=== PATIENT | female | born 1990 | race African-American/Black ===

== ENCOUNTER 2022-01-18 08:07 | Emergency (ER) | payer OTHER ==
[~2022-01-18] VITALS: Ht 154.9 cm; Wt 55.0 kg
[~2022-01-18 08:07] MED LIST: ACET-2708 MT
[2022-01-18] MEDS ORDERED: LIDOCAINE HCL/EPINEPHRINE 1%-EPI 1:100,000 20 ML VIAL INFIL ONE (13:45)
[2022-01-18 16:05] VITALS: BP 149/82
[2022-02-28] MEDS ORDERED: CHOL400D7 PO (16:47)
[2022-03-01] MEDS ORDERED: FOLI-43 PO (12:56)
[2022-03-01] MEDS ORDERED: THIA100T72 PO (12:56)
[2022-03-01] MEDS ORDERED: L25 PO (12:56)
[2022-03-01] MEDS ORDERED: MULT-230 MT (12:56)
[2022-03-01] MEDS ORDERED: AMLO2.5T45 MT (12:57)
== END 2022-01-18 16:14 | disposition home or self-care (01) ==
LOC: ER 08:13
DX: S01.81XA Laceration without foreign body of other part of head, initial encounter (principal); W18.39XA Other fall on same level, initial encounter; Y93.89 Activity, other specified; Y92.89 Other specified places as the place of occurrence of the external cause; Y99.8 Other external cause status
CPT/HCPCS: 36415; 84702; 99285; J3490

== ENCOUNTER 2023-05-18 07:02 | Emergency (ER) | payer MEDICAID, OTHER ==
[~2023-05-18] VITALS: Ht 157.5 cm; Wt 41.1 kg
[~2023-05-18 07:02] MED LIST changes: +AMLO2.5T45 MT; +CHOL400D7 PO; +FOLI-43 PO; +L25 PO; +MULT-230 MT; +THIA100T72 PO
[2023-05-18 07:15] VITALS: O2SAT 100
[2023-05-18 08:45] VITALS: BP 146/98; PULSE 118; RESP 18; TEMP 98.1
[2023-05-18] MEDS ORDERED: IBUPROFEN 400MG TABLET PO ONE (08:45)
[2023-05-18] MEDS ORDERED: ACETAMINOPHEN 325MG TABLET PO ONE (08:45)
[2023-05-18] MEDS ORDERED: LIDOCAINE HCL 1%/EPI 1:200,000 30 ML VIAL MC ONE (09:45)
[2023-05-18] MEDS ORDERED: LIDOCAINE HCL/EPINEPHRINE 1%-EPI 1:100,000 50 ML VIAL INFIL ONE (09:45)
[2023-05-18] MEDS ORDERED: LIDOCAINE HCL 1%/EPI 1:200,000 30 ML VIAL IJ NR (10:00)
== END 2023-05-18 10:20 | disposition home or self-care (01) ==
LOC: ER 07:02
DX: S09.90XA Unspecified injury of head, initial encounter (principal); S01.112A Laceration without foreign body of left eyelid and periocular area, initial encounter; R55 Syncope and collapse; Y04.0XXA Assault by unarmed brawl or fight, initial encounter; Y93.89 Activity, other specified; Y92.89 Other specified places as the place of occurrence of the external cause; Y99.8 Other external cause status
CPT/HCPCS: 81025; 70450; 12011; 99284; J3490; Z7610

== ENCOUNTER 2023-05-26 16:55 | Emergency (ER) | payer MEDICAID, OTHER ==
[~2023-05-26] VITALS: Ht 157.5 cm; Wt 45.5 kg
[2023-05-26 17:08] VITALS: O2SAT 100
[2023-05-26] MEDS ORDERED: AMLODIPINE 5MG TABLET PO NR (17:45)
[2023-05-26] MEDS ORDERED: ACETAMINOPHEN 325MG TABLET PO ONE (17:45)
[2023-05-26] MEDS ORDERED: AMLODIPINE 10MG TABLET PO ONE (17:45)
[2023-05-26 19:09] VITALS: BP 170/109; PULSE 78; RESP 16; TEMP 97.9
[2023-05-26] MEDS ORDERED: AMLO10TA4 MT (19:14)
[2023-05-26] MEDS ORDERED: IBUP-2028 MT (19:14)
== END 2023-05-26 19:30 | disposition home or self-care (01) ==
LOC: ER 16:55
DX: I10 Essential (primary) hypertension (principal); F12.10 Cannabis abuse, uncomplicated; Z48.02 Encounter for removal of sutures
CPT/HCPCS: 81025; 70450; 99284; Z7610 ×2